=== PATIENT | female | born 1945 | race Caucasian/White ===

== ENCOUNTER → 2016-07-17 | Outpatient (CLI) | payer OTHER ==
[~2016-07-17] MED LIST: ASPI325T PO; ATOR40TA PO; BACT800T5 PO; CITRTAB7 PO; CLAR10TA7 PO; FLOV110A INH; FLUO20TA20 PO; LEVO125T3 PO; MOBI7.5T PO; OMEP20TA39 PO; PRED50TA PO
[2016-07-17 12:06] LABS: BLOOD GAS BASE EXCESS -0.9 mmol/L (-2-2); BLOOD GAS CARBOXYHEMOGLOBIN 1.7 % (0-4); BLOOD GAS HCO3 23 mmol/L (22-26); BLOOD GAS METHEMOGLOBIN 1.1 % (0-2); BLOOD GAS O2 HGB SATURATION 93 % (90-100); BLOOD GAS PCO2 39 mmHg (38-42); BLOOD GAS PO2 83 mmHg (61-120); CRITICAL VALUE NO; DRAW SITE RT RADIAL; FIO2 21 %; NUMBER OF ARTERIAL PUNCTURES 1; STAT NO; TEMP CORR TO 98.6; ULNAR PULSE PRESENT
--- NOTE | 2016-07-23 09:11 | RSPPFT ---
DATE OF PROCEDURE: 07/17/16 COMMENTS: VOLUMES DYNAMIC: FVC and FEV1 mildly reduced. STATIC: TLC, VTG mildly reduced; RV normal. FLOWS: FEV1% normal; FEF 25-75 moderately reduced. DIFFUSION: Normal. FLOW VOLUME LOOP: Restrictive configuration with terminal airflow obstruction. IMPRESSION: Mild restrictive ventilatory defect with mild terminal airflow obstruction and minimal improvement post-bronchodilator. Airways resistance is normal. Diffusion is normal.
== END ==
LOC: HRSP 10:53
PROVIDERS: ATTEND Internal Medicine
DX: J44.9 Chronic obstructive pulmonary disease, unspecified (principal); J84.10 Pulmonary fibrosis, unspecified
CPT/HCPCS: 36600; 82805; 94060; 94620; 94726; 94729